=== PATIENT | female | born 1975 | race American Indian/Alaskan Native ===

== ENCOUNTER 2017-10-11 23:51 | Inpatient (IN) | payer BC ==
[2017-10-12] MEDS ORDERED: XYLOCAINE 1% 20 mL INFILTRATI ONE
[2017-10-12] MEDS ORDERED: NACL 0.9% IR ONE
[2017-10-12] MEDS ORDERED: WATER FOR IRRIG STERILE IR ONE
[2017-10-12] MEDS ORDERED: ZOFRAN IM ONE (01:59)
[2017-10-12] MEDS ORDERED: TORADOL IM ONE (01:59)
[2017-10-12 02:59] LABS: Basophils # (Auto) 0.1 K/mm3 (0.0-0.1); Basophils % (Auto) 0.5 % (0.0-1.8); Eosinophils % (Auto) 0.1 % (0.0-4.3); Hematocrit 41.9 % (30.3-42.9); Lymphocytes # (Auto) 2.8 K/mm3 (1.2-5.4); Lymphocytes % (Auto) 15.6 % (13.4-35.0); Mean Corpuscular HGB Conc 33 % (30-34); Mean Corpuscular Hemoglobin 29 pg (28-32); Mean Corpuscular Volume 86 fl (79-97); Monocytes # (Auto) 1.8 K/mm3 (0.0-0.8); Monocytes % (Auto) 10.1 % (0.0-7.3); Platelet Count 274 K/mm3 (140-440); Red Blood Count 4.85 M/mm3 (3.65-5.03); Red Cell Distribution Width 14.6 % (13.2-15.2)
[2017-10-12 03:18] LABS: Alanine Aminotransferase 14 units/L (7-56); Albumin 4.2 g/dL (3.9-5); BUN/Creatinine Ratio 10; Blood Urea Nitrogen 7 mg/dL (7-17); Calcium 9.3 mg/dL (8.4-10.2); Lipase 10 units/L (13-60)
[2017-10-12 03:29] LABS: Bilirubin,Urine NEG (Negative); Blood,Urine NEG (Negative); Color,Urine Yellow (Yellow); Mucus,Urine 1+ /HPF; Protein,Urine <15 mg/dL mg/dL (Negative); Urobilinogen,Urine < 2.0 mg/dL (<2.0)
[2017-10-12] MEDS ORDERED: NACL 0.9% 1000 ML 1,000 ML IV ONE ×2 (03:29→03:31)
[2017-10-12] MEDS ORDERED: NACL 0.9% 1000 ML 1,000 ML ONE (03:32)
[2017-10-12] MEDS ORDERED: ZOFRAN IV ONE (04:44)
[2017-10-12] MEDS ORDERED: DILAUDID IV ONE (04:44)
--- NOTE | 2017-10-12 04:49 | Emergency Department Report ---
ED Abdominal Pain HPI - General Chief Complaint: Abdominal Pain Stated Complaint: ABD PAIN Time Seen by Provider: 10/12/17 03:22 Source: patient Mode of arrival: Ambulatory Limitations: No Limitations - History of Present Illness Initial Comments: 42-year-old -Sy[place] female with past medical history of tachycardic with a rate of 100. She comes in for complaint of abdominal pain 2 days with nausea and vomiting. Patient reports that she's been having fever and chills. Patient reports that she vomited 5 times on Thursday and on Thursday she was just nauseated. Patient reports that she's not been able to eat or drink. She reports that the Zofran and Toradol that she had in triage had helped some but currently she started to have more pain and more nausea. MD Complaint: abdominal pain -: days(s) (2) Location: LUQ, RUQ Radiation: none Migration to: no migration Severity scale (0 -10): 8 Quality: cramping, sharp Consistency: intermittent Improves With: medication Worsens With: nothing Associated Symptoms: nausea, vomiting, fever, chills - Related Data Previous Rx's Medication Instructions Recorded Last Taken Type Nitrofurantoin [place]/M-Cryst 100 mg PO Q12HR #14 capsule 03/15/15 Unknown Rx [Macrobid CAP] metroNIDAZOLE [Flagyl] 500 mg PO Q12HR #14 tab 03/15/15 Unknown Rx Allergies Allergy/AdvReac Type Severity Reaction Status Date / Time No Known Allergies Allergy Verified 03/15/15 13:48 ED Review of Systems ROS: Stated complaint: ABD PAIN Other details as noted in HPI Constitutional: chills, fever Eyes: denies: eye pain, eye discharge, vision change ENT: denies: ear pain, throat pain Respiratory: denies: cough, shortness of breath, wheezing Cardiovascular: denies: chest pain, palpitations Endocrine: no symptoms reported Gastrointestinal: abdominal pain, nausea, vomiting. denies: diarrhea, constipation, hematemesis Genitourinary: denies: dysuria Musculoskeletal: denies: back pain, joint swelling, arthralgia Skin: denies: rash, lesions Neurological: denies: headache, weakness, paresthesias Psychiatric: denies: anxiety, depression Hematological/Lymphatic: denies: easy bleeding, easy bruising ED Past Medical Hx - Past Medical History Additional medical history: Tachycardia. Fibroids - Surgical History Additional Surgical History: , Hysterectomy - Social History Smoking Status: Never Smoker Substance Use Type: None - Medications Home Medications: Home Medications Medication Instructions Recorded Confirmed Last Taken Type Nitrofurantoin [place]/M-Cryst 100 mg PO Q12HR #14 capsule 03/15/15 Unknown Rx [Macrobid CAP] metroNIDAZOLE [Flagyl] 500 mg PO Q12HR #14 tab 03/15/15 Unknown Rx ED Physical Exam - General Limitations: No Limitations General appearance: alert, in no apparent distress - Head Head exam: Present: atraumatic, normocephalic - Eye Eye exam: Present: normal appearance - ENT ENT exam: Present: mucous membranes moist - Neck Neck exam: Present: normal inspection - Respiratory Respiratory exam: Present: normal lung sounds bilaterally. Absent: respiratory distress - Cardiovascular Cardiovascular Exam: Present: regular rate, normal rhythm. Absent: systolic murmur, diastolic murmur, rubs, gallop - GI/Abdominal GI/Abdominal exam: Present: soft, tenderness, normal bowel sounds. Absent: distended, guarding, rebound, rigid - Extremities Exam Extremities exam: Present: normal inspection - Back Exam Back exam: Present: normal inspection - Neurological Exam Neurological exam: Present: alert, oriented X3 - Psychiatric Psychiatric exam: Present: normal affect, normal mood - Skin Skin exam: Present: warm, dry, intact, normal color. Absent: rash ED Course Vital Signs 10/12/17 10/12/17 01:51 06:50 Temperature 99.5 F 98.8 F Pulse Rate 113 H 99 H Respiratory 18 18 Rate Blood Pressure 143/88 Blood Pressure 128/77 [Right] O2 Sat by Pulse 99 99 Oximetry ED Medical Decision Making - Lab Data Result diagrams: 10/12/17 02:27 10/12/17 02:27 - Radiology Data Radiology results: report reviewed, image reviewed FINAL REPORT EXAM: CT ABDOMEN PELVIS W CON HISTORY: abdominal pain with nausea and vomiting TECHNIQUE: Routine axial imaging was obtained of the abdomen and pelvis following the intravenous injection of 100 cc of Omnipaque 300. Delayed imaging was obtained through the kidneys ureters and bladder. Sagittal coronal reconstructions were reviewed. FINDINGS: The lung bases reveal mild atelectatic changes in both lower lobes. Pleural fluid is not identified. The liver, gallbladder, biliary tree, pancreas, spleen, and adrenal glands appear normal. The kidneys enhance normally. The vasculatures enhance normally. The bowel loops are normal in caliber and course. In the right side of the pelvis there are diffuse inflammatory changes. Along the base of the cecum is a calcification with fusiform enlargement of the appendix compatible acute appendicitis. There are small foci of air in the soft tissues along with considerable free fluid the pelvis compatible with perforation. The bladder appears normal. The uterus is not identified. The skeletal structures otherwise well maintained. IMPRESSION: Findings compatible with acute appendicitis with perforation and free fluid the pelvis. Mild atelectatic changes in both lung bases. Transcribed By: RB Dictated By: NELLY JANSEN MD Electronically Authenticated By: NELLY JANSEN MD Signed Date/Time: 10/12/17635 DD/ 5 TD/TT: 10/12/17635 - Medical Decision Making Patient has been evaluated by this provider fast track. I discussed with Dr. Young this patient's case. I did inform her that her white count was elevated at 18 reports her LFTs were negative. Urinalysis looks normal. Discuss that we will do a CT with contrast. Please and IV 1 L of normal saline and gave her Dilaudid 0.5 mg and another dose of Zofran and 0.4 mg IV. Patient continued to be monitored. Received a call from Dr. Jansen radiologist reports that patient has an acute appendectomy possible perforation concern for peritoneal fluid. Patient will be started on Zosyn for broad spectrum and I got it for gram- positive and gram-negative. Delay in starting antibiotics due to patient's tube in the waiting room when labs return. This provider pulled her over to fast track to start evaluation and treatment. Critical care attestation.: If time is entered above; I have spent that time in minutes in the direct care of this critically ill patient, excluding procedure time. ED Disposition Clinical Impression: Acute appendicitis Qualifiers: Acute appendicitis type: unspecified acute appendicitis type Qualified Code(s) : K35.80 - Unspecified acute appendicitis Disposition: OP ADMIT IP TO THIS HOSP Is pt being admited?: Yes Does the pt Need Aspirin: No Condition: Stable Instructions: Abdominal Pain (ED) Referrals: PRIMARY CARE, [Primary Care Provider] - 3-5 Days
--- NOTE | 2017-10-12 06:41 | Cat Scan Report ---
FINAL REPORT EXAM: CT ABDOMEN PELVIS W CON HISTORY: abdominal pain with nausea and vomiting TECHNIQUE: Routine axial imaging was obtained of the abdomen and pelvis following the intravenous injection of 100 cc of Omnipaque 300. Delayed imaging was obtained through the kidneys ureters and bladder. Sagittal coronal reconstructions were reviewed. FINDINGS: The lung bases reveal mild atelectatic changes in both lower lobes. Pleural fluid is not identified. The liver, gallbladder, biliary tree, pancreas, spleen, and adrenal glands appear normal. The kidneys enhance normally. The vasculatures enhance normally. The bowel loops are normal in caliber and course. In the right side of the pelvis there are diffuse inflammatory changes. Along the base of the cecum is a calcification with fusiform enlargement of the appendix compatible acute appendicitis. There are small foci of air in the soft tissues along with considerable free fluid the pelvis compatible with perforation. The bladder appears normal. The uterus is not identified. The skeletal structures otherwise well maintained. IMPRESSION: Findings compatible with acute appendicitis with perforation and free fluid the pelvis. Mild atelectatic changes in both lung bases.
[2017-10-12] MEDS ORDERED: ZOSYN/NS 4.5GM/100ML 4.5 GM/100 ML VIAL IV ONE (06:47)
[2017-10-12] MEDS ORDERED: NACL 0.9% 1000 ML IV ONE ×2 (06:47)
[2017-10-12] MEDS ORDERED: SODIUM CHLORIDE FLUSH SYRINGE 10 ML IV PRN (07:26)
[2017-10-12] MEDS ORDERED: TYLENOL PO PRN (07:26)
--- NOTE | 2017-10-12 07:34 | History and Physical Report ---
History of Present Illness Date of examination: 10/12/17 Chief complaint: Abdominal pain History of present illness: 42-year-old -Russian female with past medical history significant for tachycardia presented to the emergency department complaining of abdominal pain nausea and vomiting for the last 2 days. Patient is on the lower abdomen, always in addition to the lower back, sharp, 9/10, relieved his pain medications. Patient has ASSOCIATED diarrhea, fever and chills. Patient has history of tachycardia and the maximum was 170, was evaluated before and no cause identified. CT abdomen and pelvis was done and significant for appendicitis with possible perforation. Patient has leukocytosis. General surgery was consulted and patient may have laparoscopic appendectomy. REVIEW OF SYSTEMS: GENERAL: no weight change, no fatigue HEAD: no head ache EYES: no blurry vision, no acute visual loss EARS: no hearing loss, no discharge, no earache NOSE: no stuffiness, no sneezing, no discharge MOUTH, THROAT AND NECK: no bleeding gums, no sore throat, no swollen neck CARDIAC: + palpitations, no dyspnea on exertion, no orthopnea, no PND, no edema , no chest pain RESPIRATORY: no shortness of breath, no wheeze, no cough, no sputum, no hemoptysis, no asthma GI: As stated in the HPI. URINARY: no change in frequency, no urgency, no polyuria, no hematuria, no incontinence MUSCULOSKELETAL: no muscle weakness, no pain, no joint stiffness NEUROLOGIC: no loss of sensation/numbness, no tingling, no tremors, no weakness/ paralysis HEMATOLOGIC: no anemia, no easy bruising SKIN: no rashes ENDOCRINE: no heat/cold intolerance, no polyuria, no polydipsia, no thyroid problems, no diabetes PSYCHIATRIC: no anxiety, no depression, no suicidal ideations Past History Past Medical History: other (tachycardia) Past Surgical History: , hysterectomy Social history: full code. denies: smoking, alcohol abuse, prescription drug abuse, IV drug use Family history: no significant family history Medications and Allergies Allergies Allergy/AdvReac Type Severity Reaction Status Date / Time No Known Allergies Allergy Verified 03/15/15 13:48 Home Medications Medication Instructions Recorded Confirmed Last Taken Type Nitrofurantoin [place]/M-Cryst 100 mg PO Q12HR #14 capsule 03/15/15 Unknown Rx [Macrobid CAP] metroNIDAZOLE [Flagyl] 500 mg PO Q12HR #14 tab 03/15/15 Unknown Rx Active Meds: Active Medications Acetaminophen (Tylenol) 650 mg PO Q4H PRN PRN Reason: Pain MILD(1-3)/Fever >100.5/NORMAN Dextrose/Sodium Chloride (D5/0.45ns) 1,000 mls @ 75 mls/hr IV DIRECT SAMMIE Piperacillin Sod/Tazobactam Sod (Zosyn/Ns 3.375gm/50ml) 3.375 gm in 50 mls @ 100 mls/hr IV Q8HR SAMMIE; Protocol Morphine Sulfate (Morphine) 2 mg IV Q4H PRN PRN Reason: Pain, Moderate (4-6) Ondansetron HCl (Zofran) 4 mg IV Q8H PRN PRN Reason: Nausea And Vomiting Sodium Chloride (Sodium Chloride Flush Syringe 10 Ml) 10 ml IV BID SAMMIE Sodium Chloride (Sodium Chloride Flush Syringe 10 Ml) 10 ml IV PRN PRN PRN Reason: LINE FLUSH Exam - Physical Exam Narrative exam: Not in cardiopulmonary distress. The patient appeared well nourished and normally developed. Vital signs as documented. Head exam is unremarkable. No scleral icterus . Neck is without jugular venous distension, thyromegaly, or carotid bruits. Lungs are clear to auscultation. Cardiac exam reveals regular rate and Rhythm. First and second heart sounds normal. No murmurs, rubs or gallops. Abdominal exam reveals lower abdominal tenderness, positive for rebound tenderness, no guarding or rigidity. Extremities are nonedematous and both femoral and pedal pulses are normal. CABINET ABRASIVE SANDBLASTER: Alert and oriented 3. No focal weakness. - Constitutional Vitals: Temp Pulse Resp BP Pulse Ox 98.8 F 99 H 18 128/77 99 10/12/17 06:50 10/12/17 06:50 10/12/17 06:50 10/12/17 06:50 10/12/17 06:50 Results - Labs CBC & Chem 7: 10/12/17 02:27 10/12/17 02:27 Labs: Laboratory Last Values WBC 18.0 K/mm3 (4.5-11.0) H 10/12/17 02:27 RBC 4.85 M/mm3 (3.65-5.03) 10/12/17 02:27 Hgb 14.0 gm/dl (10.1-14.3) 10/12/17 02:27 Hct 41.9 % (30.3-42.9) 10/12/17 02:27 MCV 86 fl (79-97) 10/12/17 02:27 MCH 29 pg (28-32) 10/12/17 02:27 MCHC 33 % (30-34) 10/12/17 02:27 RDW 14.6 % (13.2-15.2) 10/12/17 02:27 Plt Count 274 K/mm3 (140-440) 10/12/17 02:27 Lymph % (Auto) 15.6 % (13.4-35.0) 10/12/17 02:27 [place] % (Auto) 10.1 % (0.0-7.3) H 10/12/17 02:27 Eos % (Auto) 0.1 % (0.0-4.3) 10/12/17 02: Baso % (Auto) 0.5 % (0.0-1.8) 10/12/17 02:27 Lymph # 2.8 K/mm3 (1.2-5.4) 10/12/17 02:27 [place] # 1.8 K/mm3 (0.0-0.8) H 10/12/17 02:27 Eos # 0.0 K/mm3 (0.0-0.4) 10/12/17 02:27 Baso # 0.1 K/mm3 (0.0-0.1) 10/12/17 02:27 Seg Neutrophils % 73.7 % (40.0-70.0) H 10/12/17 02:27 Seg Neutrophils # 13.3 K/mm3 (1.8-7.7) H 10/12/17 02:27 Sodium 136 mmol/L (137-145) L 10/12/17 02:27 Potassium 4.1 mmol/L (3.6-5.0) 10/12/17 02:27 Chloride 97.1 mmol/L (98-107) L 10/12/17 02:27 Carbon Dioxide 25 mmol/L (22-30) 10/12/17 02:27 Anion Gap 18 mmol/L 10/12/17 02:27 BUN 7 mg/dL (7-17) 10/12/17 02:27 Creatinine 0.7 mg/dL (0.7-1.2) 10/12/17 02:27 Estimated GFR > 60 ml/min 10/12/17 02:27 BUN/Creatinine Ratio 10 % 10/12/17 02:27 Glucose 108 mg/dL (65-100) H 10/12/17 02:27 Lactic Acid 0.50 mmol/L (0.7-2.0) L 10/12/17 07:08 Calcium 9.3 mg/dL (8.4-10.2) 10/12/17 02:27 Total Bilirubin 0.70 mg/dL (0.1-1.2) 10/12/17 02:27 AST 13 units/L (5-40) 10/12/17 02:27 ALT 14 units/L (7-56) 10/12/17 02:27 Alkaline Phosphatase 62 units/L (35-129) 10/12/17 02:27 Total Protein 7.7 g/dL (6.3-8.2) 10/12/17 02:27 Albumin 4.2 g/dL (3.9-5) 10/12/17 02:27 Albumin/Globulin Ratio 1.2 % 10/12/17 02:27 Lipase 10 units/L (13-60) L 10/12/17 02:27 Urine Color Yellow (Yellow) 10/12/17 03:19 Urine Turbidity Clear (Clear) 10/12/17 03:19 Urine pH 6.0 (5.0-7.0) 10/12/17 03:19 Ur Specific [place] 1.014 (1.003-1.030) 10/12/17 03:19 Urine Protein <15 mg/dl mg/dL (Negative) 10/12/17 03:19 Urine Glucose (UA) Neg mg/dL (Negative) 10/12/17 03:19 Urine Ketones Tr mg/dL (Negative) 10/12/17 03:19 Urine Blood Neg (Negative) 10/12/17 03:19 Urine Nitrite Neg (Negative) 10/12/17 03:19 Urine Bilirubin Neg (Negative) 10/12/17 03:19 Urine Urobilinogen < 2.0 mg/dL (<2.0) 10/12/17 03:19 Ur Leukocyte Esterase Neg (Negative) 10/12/17 03:19 Urine WBC (Auto) 1.0 /HPF (0.0-6.0) 10/12/17 03:19 Urine RBC (Auto) 1.0 /HPF (0.0-6.0) 10/12/17 03:19 U Epithel Cells (Auto) 2.0 /HPF (0-13.0) 10/12/17 03:19 Urine Mucus 1+ /HPF 10/12/17 03:19 Assessment and Plan Assessment and plan: 42-year-old -Russian female was presented to the emergency department with complaints of nausea, vomiting, lower abdominal pain. CT showed appendicitis with perforation and surgery was consulted and recommended for admission for laparoscopic procedure. Perforated appendicitis - CT showed appendicitis with perforation - Surgery notified, NPO, IV fluids Sepsis due to the above - WBC count is 18,000, tachycardia - On Zosyn Tachycardia - Could be her baseline or due to sepsis DVT prophylaxis - SCDs for now and will put on lovenox after surgery Disposition admit to medical floor with remote tele. Advance Directives: Yes VTE prophylaxis?: Mechanical Reason for no VTE Prophylaxis: Surgical contraindication
--- NOTE | 2017-10-12 07:47 | Event Note ---
Date: 10/12/17 Patient found to have acute appendicitis with sepsis criteria. She is hemodynamically stable. She is given appropriate fluid bolus resuscitation, and targeted antibiotic therapy. Case is discussed with the general surgeon, Dr. Alba, who will see the patient in consultation, requests medical admission as per this hospital current policy. The hospital physician, Dr. Begum, accepted the patient to the medical service. Vital Signs 10/12/17 10/12/17 01:51 06:50 Temperature 99.5 F 98.8 F Pulse Rate 113 H 99 H Respiratory 18 18 Rate Blood Pressure 143/88 Blood Pressure 128/77 [Right] O2 Sat by Pulse 99 99 Oximetry Lab Results 10/12/17 10/12/17 10/12/17 Range/Units 02:27 02:27 03:19 WBC 18.0 H (4.5-11.0) K/mm3 RBC 4.85 (3.65-5.03) M/mm3 Hgb 14.0 (10.1-14.3) gm/dl Hct 41.9 (30.3-42.9) % MCV 86 (79-97) fl MCH 29 (28-32) pg MCHC 33 (30-34) % RDW 14.6 (13.2-15.2) % Plt Count 274 (140-440) K/mm3 Lymph % (Auto) 15.6 (13.4-35.0) % [place] % (Auto) 10.1 H (0.0-7.3) % Eos % (Auto) 0.1 (0.0-4.3) % Baso % (Auto) 0.5 (0.0-1.8) % Lymph # 2.8 (1.2-5.4) K/mm3 [place] # 1.8 H (0.0-0.8) K/mm3 Eos # 0.0 (0.0-0.4) K/mm3 Baso # 0.1 (0.0-0.1) K/mm3 Seg Neutrophils % 73.7 H (40.0-70.0) % Seg Neutrophils # 13.3 H (1.8-7.7) K/mm3 Sodium 136 L (137-145) mmol/L Potassium 4.1 (3.6-5.0) mmol/L Chloride 97.1 L (98-107) mmol/L Carbon Dioxide 25 (22-30) mmol/L Anion Gap 18 mmol/L BUN 7 (7-17) mg/dL Creatinine 0.7 (0.7-1.2) mg/dL Estimated GFR > 60 ml/min BUN/Creatinine Ratio 10 % Glucose 108 H (65-100) mg/dL Lactic Acid (0.7-2.0) mmol/L Calcium 9.3 (8.4-10.2) mg/dL Total Bilirubin 0.70 (0.1-1.2) mg/dL AST 13 (5-40) units/L ALT 14 (7-56) units/L Alkaline Phosphatase 62 (35-129) units/L Total Protein 7.7 (6.3-8.2) g/dL Albumin 4.2 (3.9-5) g/dL Albumin/Globulin Ratio 1.2 % Lipase 10 L (13-60) units/L Urine Color Yellow (Yellow) Urine Turbidity Clear (Clear) Urine pH 6.0 (5.0-7.0) Ur Specific [place] 1.014 (1.003-1.030) Urine Protein <15 mg/dl (Negative) mg/dL Urine Glucose (UA) Neg (Negative) mg/dL Urine Ketones Tr (Negative) mg/dL Urine Blood Neg (Negative) Urine Nitrite Neg (Negative) Urine Bilirubin Neg (Negative) Urine Urobilinogen < 2.0 (<2.0) mg/dL Ur Leukocyte Esterase Neg (Negative) Urine WBC (Auto) 1.0 (0.0-6.0) /HPF Urine RBC (Auto) 1.0 (0.0-6.0) /HPF U Epithel Cells (Auto) 2.0 (0-13.0) /HPF Urine Mucus 1+ /HPF 10/12/17 10/12/17 Range/Units 03:40 07:08 WBC (4.5-11.0) K/mm3 RBC (3.65-5.03) M/mm3 Hgb (10.1-14.3) gm/dl Hct (30.3-42.9) % MCV (79-97) fl MCH (28-32) pg MCHC (30-34) % RDW (13.2-15.2) % Plt Count (140-440) K/mm3 Lymph % (Auto) (13.4-35.0) % [place] % (Auto) (0.0-7.3) % Eos % (Auto) (0.0-4.3) % Baso % (Auto) (0.0-1.8) % Lymph # (1.2-5.4) K/mm3 [place] # (0.0-0.8) K/mm3 Eos # (0.0-0.4) K/mm3 Baso # (0.0-0.1) K/mm3 Seg Neutrophils % (40.0-70.0) % Seg Neutrophils # (1.8-7.7) K/mm3 Sodium (137-145) mmol/L Potassium (3.6-5.0) mmol/L Chloride (98-107) mmol/L Carbon Dioxide (22-30) mmol/L Anion Gap mmol/L BUN (7-17) mg/dL Creatinine (0.7-1.2) mg/dL Estimated GFR ml/min BUN/Creatinine Ratio % Glucose (65-100) mg/dL Lactic Acid 0.90 0.50 L (0.7-2.0) mmol/L Calcium (8.4-10.2) mg/dL Total Bilirubin (0.1-1.2) mg/dL AST (5-40) units/L ALT (7-56) units/L Alkaline Phosphatase (35-129) units/L Total Protein (6.3-8.2) g/dL Albumin (3.9-5) g/dL Albumin/Globulin Ratio % Lipase (13-60) units/L Urine Color (Yellow) Urine Turbidity (Clear) Urine pH (5.0-7.0) Ur Specific [place] (1.003-1.030) Urine Protein (Negative) mg/dL Urine Glucose (UA) (Negative) mg/dL Urine Ketones (Negative) mg/dL Urine Blood (Negative) Urine Nitrite (Negative) Urine Bilirubin (Negative) Urine Urobilinogen (<2.0) mg/dL Ur Leukocyte Esterase (Negative) Urine WBC (Auto) (0.0-6.0) /HPF Urine RBC (Auto) (0.0-6.0) /HPF U Epithel Cells (Auto) (0-13.0) /HPF Urine Mucus /HPF
[2017-10-12] MEDS ORDERED: D5/0.45NS 1,000 ML IV SCH (08:00)
[2017-10-12] MEDS: ZOFRAN IV PRN ×2 (09:43→20:00)
[2017-10-12] MEDS: MORPHINE IV PRN (09:44)
--- NOTE | 2017-10-12 09:58 | Consultation ---
History of Present Illness Consult date: 10/12/17 Reason for consult: other (perforated appendicitis) Requesting physician: DENIS GARY Chief complaint: abdominal pain x 2 days - History of present illness History of present illness: 42-year-old female presented to the emergency department with a two-day history of progressively worsening abdominal pain associated with nausea and vomiting. She reports that she has had fevers, chills, sweats. Her last meal was yesterday but she vomited. She has never had anything like this before. She feels bloated. Past History Past Medical History: denies: CAD, cancer, diabetes, hypertension Past Surgical History: , hysterectomy, Other (ectopic surgery) Social history: no significant social history. denies: smoking, alcohol abuse, IV drug use Family history: no significant family history Medications and Allergies Allergies Allergy/AdvReac Type Severity Reaction Status Date / Time No Known Allergies Allergy Verified 03/15/15 13:48 Home Medications Medication Instructions Recorded Confirmed Last Taken Type Nitrofurantoin Mccone/M-Cryst 100 mg PO Q12HR #14 capsule 03/15/15 Unknown Rx [Macrobid CAP] metroNIDAZOLE [Flagyl] 500 mg PO Q12HR #14 tab 03/15/15 Unknown Rx Active Meds: Active Medications Acetaminophen (Tylenol) 650 mg PO Q4H PRN PRN Reason: Pain MILD(1-3)/Fever >100.5/NORMAN Dextrose/Sodium Chloride (D5/0.45ns) 1,000 mls @ 75 mls/hr IV DIRECT SAMMIE Piperacillin Sod/Tazobactam Sod (Zosyn/Ns 3.375gm/50ml) 3.375 gm in 50 mls @ 100 mls/hr IV Q8HR SAMMIE; Protocol Morphine Sulfate (Morphine) 2 mg IV Q4H PRN PRN Reason: Pain, Moderate (4-6) Last Admin: 10/12/17 09:44 Dose: 2 mg Ondansetron HCl (Zofran) 4 mg IV Q8H PRN PRN Reason: Nausea And Vomiting Last Admin: 10/12/17 09:43 Dose: 4 mg Sodium Chloride (Sodium Chloride Flush Syringe 10 Ml) 10 ml IV BID SAMMIE Sodium Chloride (Sodium Chloride Flush Syringe 10 Ml) 10 ml IV PRN PRN PRN Reason: LINE FLUSH Review of Systems - Constitutional fever, chills, sweats - Cardiovascular no chest pain, no shortness of breath - Respiratory no cough, no shortness of breath - Gastrointestinal abdominal pain, nausea, vomiting, dyspepsia/bloating, no diarrhea, no constipation, no hematemesis, no BRBPR, no melena, no hematochezia - Muskuloskeletal no low back pain - Integumentary no rash, no wounds Exam Vital Signs Temp Pulse Resp BP Pulse Ox 99.5 F 113 H 18 143/88 99 10/12/17 01:51 10/12/17 01:51 10/12/17 01:51 10/12/17 01:51 10/12/17 01:51 - General physical appearance Positive: well developed, well nourished, no distress, no pain - Eyes Positive: normal occular movement - ENT Positive: other (dry oral mucosa) - Respiratory Positive: normal expansion, normal respiratory effort, clear to auscultation - Cardiovascular Rhythm: regular - Extremities Extremities: No edema, normal temperature, normal color - Abdomen Abdomen: Present: soft, tender (mainly in the right lower quadrant. Mild discomfort on the left lower quadrant. No Rovsing's sign. ), bowel sounds hypoactive, guarding (voluntary), surgical scars (well-heeled lower midline incision). Absent: distended, rigid - Integumentary no rash, no growths, no abnormal pigmentation - Neurologic Neurologic: alert and oriented to time, place and person, motor strength and sensation are grossly intact - Psychiatric Psychiatric: appropriate mood/affect, intact judgment & insight, memory intact, cooperative Results - Labs 10/12/17 02:27 10/12/17 02:27 Abnormal lab results 10/12/17 10/12/17 10/12/17 Range/Units 02:27 02:27 07:08 WBC 18.0 H (4.5-11.0) K/mm3 Mccone % (Auto) 10.1 H (0.0-7.3) % Mccone # 1.8 H (0.0-0.8) K/mm3 Seg Neutrophils % 73.7 H (40.0-70.0) % Seg Neutrophils # 13.3 H (1.8-7.7) K/mm3 Sodium 136 L (137-145) mmol/L Chloride 97.1 L (98-107) mmol/L Glucose 108 H (65-100) mg/dL Lactic Acid 0.50 L (0.7-2.0) mmol/L Lipase 10 L (13-60) units/L Diabetes panel 10/12/17 Range/Units 02:27 Sodium 136 L (137-145) mmol/L Potassium 4.1 (3.6-5.0) mmol/L Chloride 97.1 L (98-107) mmol/L Carbon Dioxide 25 (22-30) mmol/L BUN 7 (7-17) mg/dL Creatinine 0.7 (0.7-1.2) mg/dL Glucose 108 H (65-100) mg/dL Calcium 9.3 (8.4-10.2) mg/dL AST 13 (5-40) units/L ALT 14 (7-56) units/L Alkaline Phosphatase 62 (35-129) units/L Total Protein 7.7 (6.3-8.2) g/dL Albumin 4.2 (3.9-5) g/dL Calcium panel 10/12/17 Range/Units 02:27 Calcium 9.3 (8.4-10.2) mg/dL Albumin 4.2 (3.9-5) g/dL Pituitary panel 10/12/17 Range/Units 02:27 Sodium 136 L (137-145) mmol/L Potassium 4.1 (3.6-5.0) mmol/L Chloride 97.1 L (98-107) mmol/L Carbon Dioxide 25 (22-30) mmol/L BUN 7 (7-17) mg/dL Creatinine 0.7 (0.7-1.2) mg/dL Glucose 108 H (65-100) mg/dL Calcium 9.3 (8.4-10.2) mg/dL Adrenal panel 10/12/17 Range/Units 02:27 Sodium 136 L (137-145) mmol/L Potassium 4.1 (3.6-5.0) mmol/L Chloride 97.1 L (98-107) mmol/L Carbon Dioxide 25 (22-30) mmol/L BUN 7 (7-17) mg/dL Creatinine 0.7 (0.7-1.2) mg/dL Glucose 108 H (65-100) mg/dL Calcium 9.3 (8.4-10.2) mg/dL Total Bilirubin 0.70 (0.1-1.2) mg/dL AST 13 (5-40) units/L ALT 14 (7-56) units/L Alkaline Phosphatase 62 (35-129) units/L Total Protein 7.7 (6.3-8.2) g/dL Albumin 4.2 (3.9-5) g/dL - Imaging CT scan - abdomen: report reviewed, image reviewed Assessment and Plan - Patient Problems (1) Perforated appendicitis Current Visit: Yes Status: Acute Plan to address problem: Patient is hemodynamically stable. Does appear to have a perforated appendicitis with localized peritonitis. Patient assessed to be need for surgery. Procedure, risks, benefits, alternatives were discussed. I offered antibiotic therapy only but did not recommend it. Patient agreed to move forward surgery. Risks included but were not limited to infection, bleeding, pain, injury other structures, possible bowel resection, possible need for further surgery in the future. Patient understood and consented to laparoscopic appendectomy, possible open surgery, possible bowel resection. Consent was obtained. Will move forward to OR this morning. Time=45min
[2017-10-12] MEDS ORDERED: XYLOCAINE 1% 20 mL ONE (11:10)
[2017-10-12] MEDS ORDERED: MARCAINE 0.25% INFILTRATI ONE ×2 (11:10)
[2017-10-12] MEDS ORDERED: XYLOCAINE MPF 2% ONE (11:14)
[2017-10-12] MEDS ORDERED: DIPRIVAN 10 MG/ML IV ONE (11:14)
[2017-10-12] MEDS ORDERED: SUBLIMAZE ONE (11:15)
[2017-10-12] MEDS ORDERED: VERSED ONE (11:21)
--- NOTE | 2017-10-12 11:34 | Anesthesia Consultation ---
Anesthesia Consult and Med Hx Date of service: 10/12/17 - Airway Anesthetic Teeth Evaluation: Good ROM Head & Neck: Adequate Mental/Hyoid Distance: Adequate Mallampati Class: Class III Intubation Access Assessment: Possibly Difficult - Pulmonary Exam CTA: Yes - Cardiac Exam Cardiac Exam: RRR - Pre-Operative Health Status ASA Pre-Surgery Classification: ASA2, Emergency Proposed Anesthetic Plan: General
--- NOTE | 2017-10-12 11:34 | Anesthesia Day of Surgery ---
Anesthesia Day of Surgery - Day of Surgery Patient Examined: Yes Patient H&P Reviewed: Yes Patient is NPO: Yes
[2017-10-12] MEDS ORDERED: DEMEROL IV PRN (11:35)
[2017-10-12] MEDS ORDERED: ZOFRAN IV PRN (11:35)
[2017-10-12] MEDS ORDERED: ZEMURON IV ONE (11:49)
[2017-10-12] MEDS ORDERED: NEO SYNEPHRINE/NS Syringe(OR USE) IV ONE (11:49)
[2017-10-12] MEDS ORDERED: QUELICIN ONE (11:49)
[2017-10-12] MEDS ORDERED: DECADRON ONE (12:00)
[2017-10-12] MEDS ORDERED: ZOFRAN ONE (12:00)
[2017-10-12] MEDS ORDERED: DILAUDID ONE ×2 (12:21→13:33)
[2017-10-12] MEDS ORDERED: ROBINUL ONE (12:55)
[2017-10-12] MEDS ORDERED: PERCOCET 5/325 PO PRN (13:22)
[2017-10-12] MEDS: DILAUDID IV PRN ×4 (13:30→20:00)
--- NOTE | 2017-10-12 13:31 | Post Operative Note ---
Date of procedure: 10/12/17 (Dictation#[id number]) Pre-op diagnosis: Perforated Appendicitis Post-op diagnosis: same Findings: inflammed appendix adhered to surrounding tissue with necrosing base and surrounding purulent fluid. Numerous adhesions found in midline and pelvis. Procedure: Laparoscopic Lysis of Adhesions; Lap appy Anesthesia: GETA Surgeon: TIARA NUNEZ Communications Manager: ALIYA PEARSON Estimated blood loss: minimal (25cc) Pathology: list (appendix) Specimen disposition: to lab Condition: stable Disposition: PACU
[2017-10-12] MEDS ORDERED: ZOSYN/NS 3.375GM/50ML 3.375 GM/50 ML BAG IV SCH (14:00)
--- NOTE | 2017-10-12 15:00 | Operative Report ---
PREOPERATIVE DIAGNOSIS: Perforated appendicitis. POSTOPERATIVE DIAGNOSIS: Perforated appendicitis. PROCEDURE: 1. Laparoscopic lysis of adhesions. 2. Laparoscopic appendectomy. ATTENDING PHYSICIAN: Jean Paul Alba MD AGRICULTURAL ECONOMICS TEACHER: Dr. Swanson ANESTHESIA: General. ESTIMATED BLOOD LOSS: 25 mL. FLUIDS: 1100 mL. FINDINGS: Numerous midline and pelvic adhesions involving omentum and small bowel. Appendix was thickened and inflamed adhered to the right lateral wall of the pelvis with small bowel adhered on top of it. The base appeared to have signs of evolving necrosis. There was purulent fluid found in the pelvis. Rest of the bowel appeared normal. Solid organs appeared normal. SPECIMENS: Appendix. DRAINS: None. COMPLICATIONS: None. DISPOSITION: Stable, transferred to Recovery Room. INDICATIONS: This is a 42-year-old female who presented with a 2-day history of progressively worsening abdominal pain associated with fevers, chills, sweats and nausea and vomiting. CT scan showed evidence of a perforated appendicitis. The patient is assessed to be in need for surgery. Procedure risks, benefits, alternatives were all discussed. Risks included but were not limited to infection, bleeding, pain, injury to surrounding structures, possible need for open surgery, possible need for bowel resection, possible need for further surgeries in the future. The patient understood and consented. OPERATIVE NOTE: The patient was brought to the operating room and placed on the table in supine position. After adequate general anesthesia was established, the patient was prepped and draped in the usual sterile fashion. The patient had already been started on Zosyn in the Emergency Room. SCDs were in place. As the patient had a prior lower midline incision, I decided to insufflate the abdomen first with a Veress needle. I placed in the left upper quadrant 3 fingerbreadths below the costal margin. I was able to insufflate on the first attempt. Then, using the Optiview technique, we placed a 5 mm port in the right upper quadrant. I thought this could be useful for taking down any adhesions we may find visualizing the appendix and retracting the appendix. A 5 mm port was inserted safely. There was no injury to the underlying structures. We examined the area where the Veress needle had been inserted. There was no injury to the underlying structures. We immediately identified a large amount of adhesions in the midline and in the pelvis. Under direct visualization, I was able to place a 12 mm port in the left lower quadrant. Using the 2 ports, we began taking down the adhesions until I could place a 5 mm port in the upper portion of the midline incision just superior to the umbilicus. This was placed under direct vision. We took down the adhesions with the laparoscopic LigaSure device. As we approached the small bowel, we had to take greater tear and taking down the adhesions of the small bowel was adhered very close to the anterior abdominal wall. I transitioned from the laparoscopic LigaSure to scissors and I took the adhesions down sharply. I wanted to minimize energy use as the small bowel was so close. We were able to get the small bowel down in its entirety. Dr. Swanson and I reviewed 3 areas of the small bowel in various locations where we thought needed our attention to make sure there was no injury. It appears that at most, there may have been a 1-2 mm area of some deserosalization; however, this appeared very minor, did not appear as though it required any resection or repair. There was no active bleeding. It could also very well have been portions of the anterior peritoneal layer that we divided. I tried to be conservative more on the peritoneal side rather than take a chance on the bowel side. We got all the bowel down. Then, I was able to bluntly separate the small bowel that was adhered to the underlying appendix in the right side of the pelvis. I was able to completely get that . We identified the appendix. I was able to bluntly separate it from the sidewall and then Dr. Swanson held it up while I divided the mesoappendix with the LigaSure device. I some of the adhesions with the LigaSure device as well. Once we clearly identified the base, it appeared healthy. The area just distal to that on the appendix appeared that it was starting to have necrosis. There were some areas that were black and blue, some areas that were densely red. I thought that if more time had been allowed, this would have completely broken down. We were able to use a 60 mm laparoscopic stapler with a blue load. I was able to get it right on the base of the appendix at the junction of the appendix and the cecum. We divided it cleanly. The staple line was right up against the cecum. Therefore, there was no stump left. It was completely intact. No leakage, no bleeding. Specimen was placed in EndoCatch bag left on the side. We thoroughly irrigated out the abdomen and suctioned it. I did not see any other purulent fluid thereafter. We removed the specimen from the left lower quadrant port site. We had to stretch out the fascia in order to remove it. Please note, I did place another 5 mm port in the suprapubic area early on in the case. We closed the left lower quadrant port site with a Arnaud-Danielito needle using a 0 Vicryl stitch. We had a very good closure with that device. We then watched the ports sites as we removed the ports. There was no bleeding from the port sites. All the ports were removed. The patient's abdomen was desufflated. A total of 30 mL of 0.5% Marcaine and 1% lidocaine 50:50 mix was injected in the port sites. Skin was closed with 4-0 Monocryl subcuticular stitches. Skin was cleaned and dried. Dermabond was placed. The patient tolerated the procedure well. There were no complications. All counts were correct at the end of the case. There were no family or friends available after the case for me to give a report. JOB# [id number] BEVERLEY/LYNETTE
[2017-10-12] MEDS: ZOSYN/NS 4.5GM/100ML 4.5 GM/100 ML VIAL IV SCH ×2 (18:00→22:06)
[2017-10-12] MEDS: SODIUM CHLORIDE FLUSH SYRINGE 10 ML IV SCH ×2 (18:36→22:06)
[2017-10-13] MEDS: MORPHINE IV PRN ×2 (01:18→05:31)
[2017-10-13] MEDS: ZOSYN/NS 4.5GM/100ML 4.5 GM/100 ML VIAL IV SCH (05:32)
[2017-10-13 06:13] LABS: Basophils % (Auto) 0.1 % (0.0-1.8); Hematocrit 33.7 % (30.3-42.9); Hemoglobin 10.6 gm/dl (10.1-14.3); Lymphocytes # (Auto) 2.1 K/mm3 (1.2-5.4); Lymphocytes % (Auto) 12.6 % (13.4-35.0); Mean Corpuscular HGB Conc 32 % (30-34); Mean Corpuscular Hemoglobin 28 pg (28-32); Mean Corpuscular Volume 89 fl (79-97); Monocytes # (Auto) 1.2 K/mm3 (0.0-0.8); Monocytes % (Auto) 7.4 % (0.0-7.3); Platelet Count 224 K/mm3 (140-440); Red Blood Count 3.79 M/mm3 (3.65-5.03); Red Cell Distribution Width 14.7 % (13.2-15.2)
[2017-10-13 06:34] LABS: BUN/Creatinine Ratio 8; Blood Urea Nitrogen 6 mg/dL (7-17); Hemolysis Index 3
--- NOTE | 2017-10-13 08:31 | Progress Note ---
Assessment and Plan - Patient Problems (1) Perforated appendicitis Current Visit: Yes Status: Acute Plan to address problem: Pt stable. s/p lap appy and lysis of adhesions. Appears to be doing well. Rec: 1) advance diet 2) may d/c home today from my perspective. 3) f/u in 2 weeks 4) go home on Augmentin to complete 1 week course 5) out of work until she f/u with me. 6) May shower tomorrow. Pat dry wounds. Please call with questions. Thank you. Subjective Date of service: 10/13/17 Patient Reports: Positive: tolerating liquids well, other (Having incisional pain. Able to walk today. ) Objective Vital Signs - 12hr 10/12/17 10/13/17 10/13/17 21:00 01:31 05:40 Temperature 99.4 F 99.2 F 99 F Pulse Rate 104 H 100 H 83 Respiratory 18 17 17 Rate Blood Pressure 119/69 127/73 112/66 [Right] O2 Sat by Pulse 98 97 Oximetry 10/13/17 10/13/17 10/13/17 06:01 08:00 08:03 Temperature 98.6 F Pulse Rate 84 Respiratory 20 18 20 Rate Blood Pressure 112/66 [Right] O2 Sat by Pulse 98 Oximetry - General physical appearance no distress, other (holding lower abdomen. - appears to have some discomfort) - Respiratory normal expansion, normal respiratory effort - Abdomen soft, tender (appropriate incisional pain), not guarding, not rigid, surgical scars (C/D/I) - Neurologic normal coordination, normal sensation - Psychiatric oriented to time, oriented to person, oriented to place, speech is normal, memory intact - Labs 10/13/17 04:58 10/13/17 04:58 Diabetes panel 10/13/17 Range/Units 04:58 Sodium 140 (137-145) mmol/L Potassium 4.0 (3.6-5.0) mmol/L Chloride 104.6 (98-107) mmol/L Carbon Dioxide 23 (22-30) mmol/L BUN 6 L (7-17) mg/dL Creatinine 0.8 (0.7-1.2) mg/dL Glucose 129 H (65-100) mg/dL Calcium 8.0 L (8.4-10.2) mg/dL Calcium panel 10/13/17 Range/Units 04:58 Calcium 8.0 L (8.4-10.2) mg/dL Pituitary panel 10/13/17 Range/Units 04:58 Sodium 140 (137-145) mmol/L Potassium 4.0 (3.6-5.0) mmol/L Chloride 104.6 (98-107) mmol/L Carbon Dioxide 23 (22-30) mmol/L BUN 6 L (7-17) mg/dL Creatinine 0.8 (0.7-1.2) mg/dL Glucose 129 H (65-100) mg/dL Calcium 8.0 L (8.4-10.2) mg/dL Adrenal panel 10/13/17 Range/Units 04:58 Sodium 140 (137-145) mmol/L Potassium 4.0 (3.6-5.0) mmol/L Chloride 104.6 (98-107) mmol/L Carbon Dioxide 23 (22-30) mmol/L BUN 6 L (7-17) mg/dL Creatinine 0.8 (0.7-1.2) mg/dL Glucose 129 H (65-100) mg/dL Calcium 8.0 L (8.4-10.2) mg/dL
[2017-10-13] MEDS: SODIUM CHLORIDE FLUSH SYRINGE 10 ML IV SCH (10:00)
--- NOTE | 2017-10-13 10:39 | Discharge Summary ---
Providers - Providers Date of Admission: 10/12/17 07:26 Attending physician: SHEELA HANSON MD 10/12/17 06:48 Consult to Physician [CONS] Stat Comment: Consulting Provider: TIARA NUNEZ Physician Instructions: Reason For Exam: sepsis w appy Primary care physician: DEHAIRER Hospitalization Reason for admission: PERFORATED APPENDIX Condition: Stable Hospital course: 42-year-old -[place] Citizen female with past medical history significant for tachycardia presented to the emergency department complaining of abdominal pain nausea and vomiting for the last 2 days. Patient is on the lower abdomen, always in addition to the lower back, sharp, 9/10, relieved his pain medications. Patient has ASSOCIATED diarrhea, fever and chills. Patient has history of tachycardia and the maximum was 170, was evaluated before and no cause identified. CT abdomen and pelvis was done and significant for appendicitis with possible perforation. Patient has leukocytosis. General surgery was consulted and patient Proceeded to have a laparoscopic appendectomy with lysis of adhesion without any complications. He was discharged with augmentin to complete one week and not to return to work until evaluated by surgery. He also was given shower instructions (1) Perforated appendicitis (2) Sepsis secondary to above (3) Peritoneal Irritation Disposition: DC-01 TO HOME OR SELFCARE Time spent for discharge: 35 MINS Core Measure Documentation - Palliative Care Palliative Care/ Comfort Measures: Not Applicable - Core Measures Any of the following diagnoses?: none - VTE Discharge Requirements Deep Vein Thrombosis/Pulmonary Embolism Present on Admission: No Exam - Physical Exam Narrative exam: VITAL SIGNS: Reviewed. GENERAL: The patient appeared well nourished and normally developed. Vital signs as documented. HEAD: No signs of head trauma. EYES: Pupils are equal. Extraocular motions intact. EARS: Hearing grossly intact. MOUTH: Oropharynx is normal. NECK: No adenopathy, no JVD. CHEST: Chest with clear breath sounds bilaterally. No wheezes, rales, or rhonchi. CARDIAC: Regular rate and rhythm. S1 and S2, without murmurs, gallops, or rubs. VASCULAR: No Edema. Peripheral pulses normal and equal in all extremities. ABDOMEN: Soft, mild tenderness around surgical site appropriate incisional pain.. No sign of distention. No rebound or guarding, and no masses palpated. Bowel Sounds normal. MUSCULOSKELETAL: Good range of motion of all major joints. Extremities without clubbing, cyanosis or edema. NEUROLOGIC EXAM: Alert and oriented x 3. No focal sensory or strength deficits. Speech normal. Follows commands. PSYCHIATRIC: Mood normal. SKIN: No rash or lesions. - Constitutional Vitals: Temp Pulse Resp BP Pulse Ox 98.6 F 84 20 112/66 98 10/13/17 08:00 10/13/17 08:00 10/13/17 08:03 10/13/17 08:00 10/13/17 08:00 Plan Activity: advance as tolerated, fall precautions Diet: advance as tolerated Wound: per your surgeon's advice Follow up with: TIARA NUNEZ MD [Staff Physician] - 14 Days PRIMARY CARE, [Primary Care Provider] - 3-5 Days Forms: Work/School Release Form Prescriptions: Amoxicillin/Potassium Clav [Augmentin 875-125 Tablet] 1 each PO BID 6 Days #12 tablet traMADol [Ultram] 50 mg PO Q6HR PRN #10 tablet PRN Reason: Pain
[2017-10-13 12:15] VITALS: BP 142/88
== END 2017-10-13 12:30 | disposition home or self-care (01) | DRG 853 ==
LOC: ED 23:51 → 3B-SURG 10-12 07:26
PROVIDERS: ADMIT Internal Medicine; ATTEND Internal Medicine
PROC: 0DTJ4ZZ Resection of Appendix, Percutaneous Endoscopic Approach (ICD-10-PCS; principal; 2017-10-12)
DX: A41.9 Sepsis, unspecified organism (principal); K35.2 Acute appendicitis with generalized peritonitis; Z90.710 Acquired absence of both cervix and uterus
CPT/HCPCS: 36415; 74177; 80048; 80053; 81001; 82140; 83690; 85025; 87040; 88304; 96372; 96374; 96375; 99285; J0330; J1100; J1170; J1885; J2250; J2270; J2370; J2405; J2543; J2704; J3010; J7030; Q9967